=== PATIENT | female | born 1965 | race American Indian/Alaskan Native ===

== ENCOUNTER 2017-01-15 06:25 | Day surgery (SDC) | payer OTHER ==
[2017-01-08 10:29] VITALS: BMI 47.2
[2017-01-15] MEDS ORDERED: Midazolam 2 MG/2 ML VIAL ONE (07:29)
[2017-01-15] MEDS ORDERED: Propofol 10 mg/ml Inj (20 ML) ONE ×2 (07:29→08:02)
[2017-01-15] MEDS ORDERED: cefOXitin IV 2 gm in Dextrose 0 GM/0 ML BAG IVPB ONE (07:53)
[2017-01-15] MEDS ORDERED: Neostigmine Methylsulfate 3mg/3ml Syringe IV ONE (08:07)
[2017-01-15] MEDS ORDERED: Albuterol 0.083% Inhal Sol (2.5 mg/3 mL) UD INH ONE (08:27)
[2017-01-15] MEDS ORDERED: Racepinephrine 2.25% Inhal Soln 0.5 ML UD NEB PRN (08:27)
[2017-01-15] MEDS ORDERED: Albuterol-Ipratrop 3 mg / 0.5 (3 ml) UD ONE (08:34)
[2017-01-15] MEDS ORDERED: Albuterol-Ipratrop 3 mg / 0.5 (3 ml) UD INH STA (08:35)
[2017-01-15] MEDS ORDERED: Acetaminophen IV 1,000 MG in Premixed IV 1 EA IV ONE (08:40)
--- NOTE | 2017-01-15 08:54 | RAD ---
HISTORY: intubation COMPARISON: None available. FINDINGS: LUNGS: Mild venous congestion. Patchy left basilar airspace opacity. PLEURA: As above. CARDIOVASCULAR: Normal. OSSEOUS STRUCTURES: No significant abnormalities. VISUALIZED UPPER ABDOMEN: Normal. OTHER FINDINGS: IMPRESSION: Mild venous congestion. Patchy left basilar airspace opacity.
--- NOTE | 2017-01-15 09:47 | PN ---
DATE: 01/15/2017 This is a 51-year-old female with a fibroid uterus, menometrorrhagia, postmenopausal bleeding, who wa s admitted for a hysteroscopic D and C. The patient, during an attempted intubation with an unsucces sful intubation with 4 attempts being made, the procedure was abandoned because of swelling of the vo jayson cords. The patient was also noted to have a piece of gum in the mouth, which was removed. The p atient had a postoperative chest x-ray, which showed a patchy basilar left airspace opacity. The pat ient is scheduled to undergo a CT scan and will undergo evaluation by pulmonary prior to discharge. Surgical procedure on the patient was terminated and was not performed. We will reschedule the patie nt at an appropriate time. Philly Reynolds MD cc: [id number] TT: 01/15/2017 09:46:31 Confirmation # [id number] Dictation # [id number]
[2017-01-15 12:01] VITALS: TEMP 98.3
[2017-01-15 13:53] VITALS: RESP 19
[2017-01-15 17:26] VITALS: O2SAT 98
[2017-01-15 17:27] VITALS: BP 135/73; PULSE 73
== END 2017-01-15 13:00 | disposition home or self-care (01) ==
LOC: C.SDS 06:25
PROVIDERS: ATTEND Obstetrics & Gynecology Reproductive Endocrinology
DX: D25.9 Leiomyoma of uterus, unspecified (principal); Z53.09 Procedure and treatment not carried out because of other contraindication
CPT/HCPCS: 58561; 71010; 82948; J2001; J2250; J2704; J2710; J3010